=== PATIENT | female | born 1995 | race Caucasian/White ===

== ENCOUNTER 2019-04-10 23:06 | Emergency (ER) | payer OTHER ==
[~2019-04-10] VITALS: Ht 157.4 cm; Wt 60.3 kg
[~2019-04-10 23:06] MED LIST: LOPRESSOR25 MG PO; MACROBID100 M1 PO; MOTRIN800 MG PO; NKHM; PEN-VEE K500 MG PO; PRENATAL1 TA7 PO; ZOFRAN ODT4 MG SL
[2019-04-10 23:08] VITALS: BP 135/82
[2019-04-11 00:24] LABS: BASO % 0.2 % (0.0-1.0); EOS # 0.3 10*3/uL (0.0-0.4); EOS % 3.7 % (1.0-4.0); HEMATOCRIT 40.5 % (37.0-47.0); HEMOGLOBIN 13.7 g/dl (12.0-16.0); LYMPH # 3.2 10*3/uL (1.3-4.4); MEAN CELL VOLUME 94.8 fl (81.0-99.0); MEAN CORPUSCULAR HGB 32.1 pg (27.0-31.0); MEAN CORPUSCULAR HGB CONC 33.8 g/dl (33.0-37.0); MEAN PLATELET VOLUME 11.2 fl (9.6-12.3); MONO # 0.4 10*3/uL (0.1-1.0); MONO % 4.9 % (3.0-9.0); NEUT # 5.1 10*3/uL (2.3-7.9); NEUT % 55.9 % (47.0-73.0); PLATELET COUNT AUTOMATED 203 10*3/uL (130-400); RED BLOOD COUNT 4.27 10*6/uL (4.10-5.10); RED CELL DISTRI WIDTH 12.2 % (0-14.5)
[2019-04-11 00:28] LABS: BILIRUBIN NEGATIVE (NEGATIVE); BLOOD NEGATIVE (NEGATIVE); CLARITY CLEAR (CLEAR); COLOR YELLOW (YELLOW); GLUCOSE NEGATIVE (NEGATIVE); KETONE NEGATIVE (NEGATIVE); LEUKO ESTERASE NEGATIVE (NEGATIVE); NITRITE NEGATIVE (NEGATIVE); PH 6.5 (5.0-9.0); UROBILINOGEN 0.2 E.U./dl (0.2-1.0)
[2019-04-11 00:35] LABS: BUN 12 mg/dl (7-24); CHLORIDE 107 mmol/L (98-107); CREATININE 0.75 mg/dL (0.55-1.02); POTASSIUM 3.6 mmol/L (3.5-5.1); SODIUM 140 mmol/L (136-145)
[2019-04-11 00:45] LABS: WBC 0-2 wbc/hpf (0-5)
[2019-04-11] MEDS ORDERED: PROAIR HFA8.5 GM INH (02:04)
[2019-04-11] MEDS ORDERED: DOXYCYCLINE100 M3 PO (02:04)
[2019-04-11] MEDS ORDERED: TESSALON PERLE100 M1 PO (02:04)
[2019-04-11] MEDS ORDERED: PREDNISONE50 MG PO (02:04)
== END 2019-04-11 02:30 | disposition home or self-care (01) ==
LOC: ED 23:06
PROVIDERS: Nurse Practitioner
DX: J40 Bronchitis, not specified as acute or chronic (principal); F17.210 Nicotine dependence, cigarettes, uncomplicated

== ENCOUNTER → 2020-11-14 | Outpatient (CLI) | payer OTHER ==
[~2020-11-14] MED LIST changes: +DOXYCYCLINE100 M3 PO; +PREDNISONE50 MG PO; +PROAIR HFA8.5 GM INH; +TESSALON PERLE100 M1 PO
== END | disposition home or self-care (01) ==
LOC: US 12:43
PROVIDERS: ATTEND Obstetrics & Gynecology
DX: O32.1XX0 Maternal care for breech presentation, not applicable or unspecified (principal); Z3A.21 21 weeks gestation of pregnancy

== ENCOUNTER → 2020-12-19 | Outpatient (CLI) | payer OTHER | END | disposition home or self-care (01) | LOC: US 16:00 | PROVIDERS: ATTEND Nurse Practitioner Women's Health | DX: Z34.82 Encounter for supervision of other normal pregnancy, second trimester (principal); Z3A.25 25 weeks gestation of pregnancy ==

== ENCOUNTER → 2021-01-16 | Outpatient (CLI) | payer OTHER | END | disposition home or self-care (01) | LOC: US 15:51 | PROVIDERS: ATTEND Nurse Practitioner Women's Health | DX: Z34.83 Encounter for supervision of other normal pregnancy, third trimester (principal); Z3A.30 30 weeks gestation of pregnancy ==

== ENCOUNTER 2022-12-29 21:46 | Emergency (ER) | payer OTHER ==
[~2022-12-29] VITALS: Ht 157.4 cm; Wt 70.8 kg
[2022-12-29 22:54] VITALS: BP 115/74
[2022-12-30 00:18] LABS: BILIRUBIN Negative (Negative); BLOOD Negative (Negative); CLARITY Clear (Clear); COLOR Yellow (Yellow); GLUCOSE Negative (Negative); KETONE Negative (Negative); LEUKO ESTERASE Negative (Negative); NITRITE Negative (Negative); SPECIFIC GRAVITY <= 1.005 (1.001-1.030); UROBILINOGEN 0.2 E.U./dl (0.0-1.0)
[2022-12-30 01:07] LABS: WBC 0-2 wbc/hpf (0-5)
== END 2022-12-30 02:15 | disposition home or self-care (01) ==
LOC: ED 21:46
PROVIDERS: Emergency Medicine
DX: F41.0 Panic disorder [episodic paroxysmal anxiety] (principal); J06.9 Acute upper respiratory infection, unspecified

== ENCOUNTER 2023-12-15 09:45 | Emergency (ER) | payer OTHER ==
[~2023-12-15] VITALS: Ht 157.4 cm; Wt 70.3 kg
[2023-12-15 09:55] VITALS: BP 153/73
== END 2023-12-15 10:50 | disposition home or self-care (01) ==
LOC: ED 09:45
DX: F41.9 Anxiety disorder, unspecified (principal); V43.52XA Car driver injured in collision with other type car in traffic accident, initial encounter; Y93.I9 Activity, other involving external motion; Y92.488 Other paved roadways as the place of occurrence of the external cause; Y99.8 Other external cause status

== ENCOUNTER → 2025-02-21 | Outpatient (CLI) | payer BC, OTHER | END | disposition home or self-care (01) | LOC: CARD 10:40 | PROVIDERS: ATTEND Internal Medicine Cardiovascular Disease | DX: R00.1 Bradycardia, unspecified (principal); R00.0 Tachycardia, unspecified; R00.2 Palpitations; F15.10 Other stimulant abuse, uncomplicated; Z72.0 Tobacco use ==

== ENCOUNTER → 2025-05-21 | Outpatient (CLI) | payer BC, OTHER | END | disposition home or self-care (01) | LOC: US 14:30 | PROVIDERS: ATTEND Obstetrics & Gynecology | DX: N85.4 Malposition of uterus (principal); R10.20 Pelvic and perineal pain unspecified side ==